=== PATIENT | female | born 1985 | race Caucasian/White ===

== ENCOUNTER 2024-04-16 19:00 | Emergency (ER) | payer OTHER ==
[2024-04-16 19:15] VITALS: TEMP 97.4
[2024-04-16] MEDS: KETOROLAC 15 MG/ML 1 ML VIAL IM STA (20:37)
--- NOTE | 2024-04-16 21:01 | XR ---
EXAMINATION TYPE: XR knee complete RT DATE OF EXAM: 04/16/2024 8:30 PM CLINICAL INDICATION:Female, 38 years old with history of pain, no injury; [facility] COMPARISON: None. TECHNIQUE: XR knee complete RT; examined in Frontal, lateral and oblique projections. FINDINGS: Nelida-Stieda avulsion fracture fragment adjacent to medial supracondylar area is age indeterminant. No evidence of any acute osseous pathology, soft tissue swelling, or joint effus ion is noted. IMPRESSION: 1. No acute osseous pathology. 2. Nelida-Stieda avulsion fracture fragment adjacent to medial supracondylar femur area is age indeterminant.
--- NOTE | 2024-04-16 21:46 | ED ---
Extremity Problem HPI - General Chief complaint: Extremity Problem,Nontraumatic Stated complaint: r leg pain/burning Time Seen by Provider: 04/16/24 20:01 Source: patient Mode of arrival: wheelchair Limitations: no limitations - History of Present Illness Initial comments: 38-year-old female presenting with chief complaint of right knee pain. Pain has been ongoing for about 1 week. She denies any injury or trauma. States that this is a burning pain. Pain gets significantly worse with weightbearing or range of motion. No numbness or tingling. Patient was previously on steroids for back pain, she states that this did nothing to alleviate the knee pain. No swelling or discoloration. - Related Data Previous Rx's Medication Instructions Recorded HYDROcodone/APAP 5-325MG [[place] 5] 1 each PO Q4-6H PRN #18 tab 04/17/24 Allergies Allergy/AdvReac Type Severity Reaction Status Date / Time shellfish derived [Shellfish] Allergy Anaphylaxis Verified 04/17/24 12:53 Review of Systems ROS Statement: Those systems with pertinent positive or pertinent negative responses have been documented in the HPI. ROS Other: All systems not noted in ROS Statement are negative. Past Medical History Past Medical History: No Reported History History of Any Multi-Drug Resistant Organisms: None Reported Past Surgical History: Adenoidectomy, Tonsillectomy Additional Past Surgical History / Comment(s): sinus, lap band /removal Past Psychological History: Depression Smoking Status: Vaper Past Alcohol Use History: Rare Past Drug Use History: Marijuana General Exam Limitations: no limitations General appearance: alert, in no apparent distress Head exam: Present: atraumatic, normocephalic Eye exam: Present: normal appearance, EOMI Neck exam: Present: normal inspection. Absent: meningismus Respiratory exam: Absent: respiratory distress Cardiovascular Exam: Present: regular rate Right Knee exam: Present: normal inspection, tenderness. Absent: full ROM, swelling, ecchymosis, erythema Neurovascular tendon exam: Present: no vascular compromise Neurological exam: Present: alert, oriented X3 Psychiatric exam: Present: normal affect, normal mood Skin exam: Present: warm, dry Course Vital Signs 04/16/24 04/16/24 19:11 22:08 Temperature 97.4 F L Pulse Rate 66 57 L Respiratory 18 16 Rate Blood Pressure 112/78 107/72 O2 Sat by Pulse 99 100 Oximetry Medical Decision Making - Medical Decision Making Was pt. sent in by a medical professional or institution (TRACEY Santoro, CUSTOMER CARE AGENT, urgent care, hospital, or assisted...) When possible be specific @ -No Did you speak to anyone other than the patient for history (EMS, parent, family, police, friend...)? What history was obtained from this source @ -No Did you review nursing and triage notes (agree or disagree)? Why? @ -I reviewed and agree with nursing and triage notes Were old charts reviewed (outside hosp., previous admission, EMS record, old EKG, old radiological studies, urgent care reports/EKG's, assisted records)? Report findings @ -No old charts were reviewed Differential Diagnosis (chest pain, altered mental status, abdominal pain women, abdominal pain men, vaginal bleeding, weakness, fever, dyspnea, syncope, headache, dizziness, GI bleed, back pain, seizure, CVA, palpatations, mental health, musculoskeletal)? @ -Differential Musculoskeletal Muscular strain, contusion, ligament sprain, fracture, arthritis, septic arthritis, bursitis, cellulitis, muscle spasm, nerve compression, DVT, arterial occlusion, herpes zoster, electrolyte abnormality, tumor.... This is not meant to be in all inclusive list EKG interpreted by me (3pts min.). @ -As above X-rays interpreted by me (1pt min.). @ -X-ray shows no acute osseous pathology. Nelida-Stieda avulsion fracture fragment. Adjacent to medial supracondylar femur area is age-indeterminate CT interpreted by me (1pt min.). @ -None done U/S interpreted by me (1pt. min.). @ -None done What testing was considered but not performed or refused? (CT, X-rays, U/S, labs)? Why? @ -None What meds were considered but not given or refused? Why? @ -None Did you discuss the management of the patient with other professionals (professionals i.e. TRACEY Santoro, CUSTOMER CARE AGENT, lab, RT, psych nurse, social services specialist, cottage attendant, teacher, attendance officer, case planner)? Give summary @ -No Was smoking cessation discussed for >3mins.? @ -No Was critical care preformed (if so, how long)? @ -No Were there social determinants of health that impacted care today? How? (Homelessness, low income, unemployed, alcoholism, drug addiction, transp ortation, low edu. Level, literacy, decrease access to med. care, shelter, rehab)? @ -No Was there de-escalation of care discussed even if they declined (Discuss DNR or withdrawal of care, Hospice)? DNR status @ -No What co-morbidities impacted this encounter? (DM, HTN, Smoking, COPD, CAD, Cancer, CVA, ARF, Chemo, Hep., AIDS, mental health diagnosis, sleep apnea, morbid obesity)? @ -None Was patient admitted / discharged? Hospital course, mention meds given and route, prescriptions, significant lab abnormalities, going to OR and other pertinent info. @ -38-year-old female presenting with chief complaint of right knee pain. No injury. She is neurovascularly intact. No evidence for infectious changes. Knee x-ray shows Nelida-Stieda fracture fragment. This is corresponding over the area of the patient's pain. She is placed in a knee immobilizer and provided with crutches. Instructed to follow-up with orthopedics. Discharged home. Follow-up with PCP. Report back to ER with any new or worsening symptoms. Discussed return parameters and answered all questions. Patient conveyed verbal understanding and agreed to the plan. I discussed this case in detail with my attending Dr. Fraser Undiagnosed new problem with uncertain prognosis? @ -No Drug Therapy requiring intensive monitoring for toxicity (Heparin, Nitro, Insulin, Cardizem)? @ -No Were any procedures done? @ -No Diagnosis/symptom? @ -Nelida-Stieda disease Acute, or Chronic, or Acute on Chronic? @ -Acute Uncomplicated (without systemic symptoms) or Complicated (systemic symptoms)? @ -Uncomplicated Side effects of treatment? @ -No Exacerbation, Progression, or Severe Exacerbation? @ -No Poses a threat to life or bodily function? How? (Chest pain, [place], [place], pneumonia, PE, COPD, DKA, ARF, appy, cholecystitis, CVA, Diverticulitis, Homicidal, Suicidal, threat to staff... and all critical care pts) @ -No Disposition Clinical Impression: Nelida-Stieda disease Disposition: HOME SELF-CARE Condition: Good Instructions (If sedation given, give patient instructions): Knee Pain (ED) Additional Instructions: Follow-up with orthopedics. Report back to ER with any new or worsening symptoms. Utilize your knee immobilizer and remain nonweightbearing on the affected leg. Rest, ice, elevate the knee. Is patient prescribed a controlled substance at d/c from ED?: No Referrals: Catie Dunne MD [Primary Care Provider] - 1-2 days Severiano Silva DO [Doctor of Osteopathic Medicine] - 1-2 days Time of Disposition: 21:46
[2024-04-16 22:20] VITALS: BP 107/72; PULSE 57; RESP 16
== END 2024-04-16 22:08 | disposition home or self-care (01) ==
LOC: EC 19:00
DX: M76.41 Tibial collateral bursitis [Pellegrini-Stieda], right leg (principal); F17.290 Nicotine dependence, other tobacco product, uncomplicated; Z90.89 Acquired absence of other organs; Z91.013 Allergy to seafood
CPT/HCPCS: 73562; 99283; 96372; L1830; J1885

== ENCOUNTER 2024-04-17 12:50 | Emergency (ER) | payer OTHER ==
[2024-04-17 12:53] VITALS: RESP 18; TEMP 97.6
--- NOTE | 2024-04-17 13:35 | ED ---
General Adult HPI - General Chief complaint: Extremity Problem,Nontraumatic Stated complaint: R Knee Pain Time Seen by Provider: 04/17/24 12:55 Source: patient, RN notes reviewed Mode of arrival: wheelchair Limitations: no limitations - History of Present Illness Initial comments: 38-year-old female presents to the emergency department for evaluation of right knee pain. Patient states that this has been going on for around 1 week. She presented to the emergency department yesterday for similar complaint. She states that the area of the pain seems to be worsening. She denies any redness, swelling, warmth to the area. She denies recent fever, chills. - Related Data Previous Rx's Medication Instructions Recorded HYDROcodone/APAP 5-325MG [[place] 5] 1 each PO Q4-6H PRN #18 tab 04/17/24 Allergies Allergy/AdvReac Type Severity Reaction Status Date / Time shellfish derived [Shellfish] Allergy Anaphylaxis Verified 04/17/24 12:53 Review of Systems ROS Statement: Those systems with pertinent positive or pertinent negative responses have been documented in the HPI. ROS Other: All systems not noted in ROS Statement are negative. Past Medical History Past Medical History: No Reported History History of Any Multi-Drug Resistant Organisms: None Reported Past Surgical History: Adenoidectomy, Tonsillectomy Additional Past Surgical History / Comment(s): sinus, lap band /removal Past Psychological History: Depression Smoking Status: Vaper Past Alcohol Use History: Rare Past Drug Use History: Marijuana General Exam Limitations: no limitations General appearance: alert, in no apparent distress Head exam: Present: atraumatic, normocephalic, normal inspection Eye exam: Present: normal appearance, PERRL, EOMI. Absent: scleral icterus, conjunctival injection, periorbital swelling ENT exam: Present: normal exam, mucous membranes moist Respiratory exam: Present: normal lung sounds bilaterally. Absent: respiratory distress, wheezes, rales, rhonchi, stridor Cardiovascular Exam: Present: regular rate, normal rhythm, normal heart sounds. Absent: systolic murmur, diastolic murmur, rubs, gallop, clicks Extremities exam: Present: full ROM, tenderness (Right medial knee), normal capillary refill. Absent: pedal edema, joint swelling, calf tenderness Neurological exam: Present: alert, oriented X3 Psychiatric exam: Present: normal affect, normal mood Skin exam: Present: warm, dry, intact, normal color. Absent: rash Course Vital Signs 04/17/24 04/17/24 12:51 15:14 Temperature 97.6 F Pulse Rate 66 60 Respiratory 18 18 Rate Blood Pressure 126/81 123/80 O2 Sat by Pulse 99 989 H Oximetry Medical Decision Making - Medical Decision Making Was pt. sent in by a medical professional or institution (, PA, PRODUCT SAFETY SPECIALIST, urgent care, hospital, or senior living...) When possible be specific @ -[No] Did you speak to anyone other than the patient for history (EMS, parent, family, police, friend...)? What history was obtained from this source @ -[No] Did you review nursing and triage notes (agree or disagree)? Why? @ -[I reviewed and agree with nursing and triage notes] Were old charts reviewed (outside hosp., previous admission, EMS record, old EKG, old radiological studies, urgent care reports/EKG's, senior living records)? Report findings @ -[X-ray from yesterday's visit was reviewed revealing Nelida status avulsion fracture fragment] Differential Diagnosis (chest pain, altered mental status, abdominal pain women, abdominal pain men, vaginal bleeding, weakness, fever, dyspnea, syncope, headache, dizziness, GI bleed, back pain, seizure, CVA, palpatations, mental health, musculoskeletal)? @ -[Differential Musculoskeletal Muscular strain, contusion, ligament sprain, fracture, arthritis, septic arthritis, bursitis, cellulitis, muscle spasm, nerve compression, DVT, arterial occlusion, herpes zoster, electrolyte abnormality, tumor.... This is not meant to be in all inclusive list] EKG interpreted by me (3pts min.). @ -[None] X-rays interpreted by me (1pt min.). @ -[None done] CT interpreted by me (1pt min.). @ -[None done] U/S interpreted by me (1pt. min.). @ -[Ultrasound of the right lower extremity was obtained today revealing no evidence of acute DVT] What testing was considered but not performed or refused? (CT, X-rays, U/S, labs)? Why? @ -[None] What meds were considered but not given or refused? Why? @ -[None] Did you discuss the management of the patient with other professionals (professionals i.e. , PA, PRODUCT SAFETY SPECIALIST, lab, RT, psych nurse, director of social services, rail technician, teacher, county records management officer, window caser)? Give summary @ -[No] Was smoking cessation discussed for >3mins.? @ -[No] Was critical care preformed (if so, how long)? @ -[No] Were there social determinants of health that impacted care today? How? (Homelessness, low income, unemployed, alcoholism, drug addiction, transportation, low edu. Level, literacy, decrease access to med. care, skilled nursing, rehab)? @ -[No] Was there de-escalation of care discussed even if they declined (Discuss DNR or withdrawal of care, Hospice)? DNR status @ -[No] What co-morbidities impacted this encounter? (DM, HTN, Smoking, COPD, CAD, Cancer, CVA, ARF, Chemo, Hep., AIDS, mental health diagnosis, sleep apnea, morbid obesity)? @ -[None] Was patient admitted / discharged? Hospital course, mention meds given and route, prescriptions, significant lab abnormalities, going to OR and other pe rtinent info. @ -[hospital course] Undiagnosed new problem with uncertain prognosis? @ -[No] Drug Therapy requiring intensive monitoring for toxicity (Heparin, Nitro, Insulin, Cardizem)? @ -[No] Were any procedures done? @ -[No] Diagnosis/symptom? @ -[default] Acute, or Chronic, or Acute on Chronic? @ -[default] Uncomplicated (without systemic symptoms) or Complicated (systemic symptoms)? @ -[default] Side effects of treatment? @ -[No] Exacerbation, Progression, or Severe Exacerbation? @ -[No] Poses a threat to life or bodily function? How? (Chest pain, [place], [place], pneumonia, PE, COPD, DKA, ARF, appy, cholecystitis, CVA, Diverticulitis, Homicidal, Suicidal, threat to staff... and all critical care pts) @ -[No] Disposition Clinical Impression: Nelida-Stieda disease Disposition: HOME SELF-CARE Condition: Stable Instructions (If sedation given, give patient instructions): Knee Pain (ED) Additional Instructions: Please follow up with orthopedics. Return to the emergency department for new or worsening symptoms. Prescriptions: HYDROcodone/APAP 5-325MG [[place] 5] 1 each PO Q4-6H PRN #18 tab PRN Reason: Pain Is patient prescribed a controlled substance at d/c from ED?: Yes When asked, does pt state using other controlled substances?: No If prescribed controlled substance>3 days was MAPS reviewed?: Prescribed <3 Days Referrals: Catie Dunne MD [Primary Care Provider] - 1-2 days
[2024-04-17] MEDS: HYDROmorphone 1 MG/ML 1 ML SYRINGE IM STA (13:38)
--- NOTE | 2024-04-17 14:28 | US ---
EXAMINATION TYPE: US venous doppler duplex LE RT DATE OF EXAM: 04/17/2024 1:35 PM COMPARISON: NONE CLINICAL INDICATION: Female, 38 years old with history of pain; pain SIDE PERFORMED: Right TECHNIQUE: The lower extremity deep venous system is examined utilizing real time linear array sonog lorenzo with graded compression, doppler sonography and color-flow sonography. VESSELS IMAGED: Common Femoral Vein Deep Femoral Vein Greater Saphenous Vein * Femoral Vein Popliteal Vein Small Saphenous Vein * Proximal Calf Veins (* superficial vessels) Right Leg: Negative for DVT IMPRESSION: Grayscale, color doppler, spectral doppler imaging performed of the deep veins of the lo wer extremities. There is normal flow, compressibility, vascular waveforms.
[2024-04-17 15:15] VITALS: BP 123/80; PULSE 60
== END 2024-04-17 16:05 | disposition home or self-care (01) ==
LOC: EC 12:50
DX: M76.41 Tibial collateral bursitis [Pellegrini-Stieda], right leg (principal); F17.290 Nicotine dependence, other tobacco product, uncomplicated; Z91.013 Allergy to seafood
CPT/HCPCS: 93971; 99284; 96372; J1170

== ENCOUNTER → 2025-03-08 | Outpatient (CLI) | payer OTHER ==
--- NOTE | 2025-03-08 11:32 | FL ---
EXAMINATION TYPE: FL UGI w small bowel DATE OF EXAM: 03/08/2025 COMPARISON: None CLINICAL INDICATION: Female, 39 years old with history of R19.4 CHANGE IN BOWEL HABIT; PHH, constipat ion and decreased appetite. Patient with history of lap band converted to gastric sleeve in 2009. TECHNIQUE: A single contrast upper GI study is performed with small bowel follow through. A total o f 1 minute 51 seconds of fluoroscopic time was utilized during procedure and 57 images obtained. Tot al dose area product (DAP) in uGy*m?, mGy*cm? (or similar): 100 mGycm2. FINDINGS: Hydrochlor[employer] Manufacturing Supervisor image of the abdomen shows no gross abnormality. There is scattered mild to moderate stool. Incidental transitional lumbosacral segment. The esophagus shows normal course and caliber. Allowing for single contrast technique, no evident thelma ling defects or discrete mucosal abnormality is seen. There is mild blunting of secondary stripping w aves resulting in some stagnation of residual contrast within the esophagus when the patient is prone /supine. No significant tertiary peristaltic waves are seen. No evidence of hiatal hernia or stricture noted. No significant gastroesophageal reflux was seen duri ng real-time performance of the study. Detailed mucosal assessment of the stomach is limited due to single contrast technique. The stomach i s mildly distended being status post sleeve gastrectomy. The duodenal bulb and sweep are unremarkable. Normal appearance to the folds within the duodenum. No obvious mass or ulcer disease is appreciated. The small bowel study shows normal transit to the colon in less than 60 minutes. There is normal muc osal fold pattern throughout the small bowel. There is no evidence of any stricture or filling defec t noted. The terminal ileum is unremarkable. IMPRESSION: 1. Some early esophageal dysmotility with mildly blunted secondary stripping waves. 2. The surgerized stomach shows mild excessive distention which may indicate clinical failure of the sleeve gastrectomy. Clinically correlate. 3. Exam limitations due to utilization of single contrast technique given previous bariatric surgery. Otherwise, no other specific abnormality on the upper GI and small bowel follow-through. [facility], , 03/08/2025 11:29 AM
== END | disposition home or self-care (01) ==
LOC: RADFLMAIN 08:19
PROVIDERS: ATTEND Family Medicine
DX: K22.4 Dyskinesia of esophagus (principal); K59.00 Constipation, unspecified; Z98.84 Bariatric surgery status
CPT/HCPCS: 74240; 74248

== ENCOUNTER 2025-03-24 18:25 | Emergency (ER) | payer OTHER ==
--- NOTE | 2025-03-24 18:44 | ED ---
Abdominal Pain HPI - General Source: patient, RN notes reviewed Mode of arrival: ambulatory Limitations: no limitations - History of Present Illness MD Complaint: abdominal pain <Reshma Nolan - Last Filed: 03/24/25 18:43> <Cee Stein - Last Filed: 03/24/25 23:47> - General Chief Complaint: Abdominal Pain Stated Complaint: Abd pressure/no bowel movement 3wks Time Seen by Provider: 03/24/25 18:35 - History of Present Illness Initial Comments: Quick Note: This is a 39-year-old female who presents to the emergency department for problems with constipation. States that for the last 3 weeks she has not had a normal bowel movement. When she tries to have a bowel movement, states that only diarrhea or mucus comes out. She did try MiraLAX at one point, but states that it seemed like it only made things worse. Denies any significant abdominal pain associated with this. Denies any nausea/vomiting or fever/chills. (Reshma Nolan) 39-year-old female presenting to the emergency department for chief complaint of constipation x 1 month. States for the last month she has not been having normal bowel movements. States she has the urge to defecate but only has small bowel movements. She does reports a couple instances of small amounts of diarrhea. Denies fevers, nausea, vomiting, abdominal pain, rectal pain. She does have a follow-up next week for a colonoscopy. She is tolerating orals well. (Cee Stein) - Related Data Home Medications Medication Instructions Recorded Confirmed Methylphenidate HCl [Concerta] 1 tab PO DAILY 12/14/24 12/28/24 Allergies Allergy/AdvReac Type Severity Reaction Status Date / Time shellfish derived [Shellfish] Allergy Anaphylaxis Verified 12/28/24 09:14 Review of Systems ROS Other: All systems not noted in ROS Statement are negative. <Reshma Nolan - Last Filed: 03/24/25 18:43> ROS Other: All systems not noted in ROS Statement are negative. <Cee Stein - Last Filed: 03/24/25 23:47> ROS Statement: Those systems with pertinent positive or pertinent negative responses have been documented in the HPI. Past Medical History Past Medical History: Blood Disorder Additional Past Medical History / Comment(s): IRON DEFICIENCY ANEMIA. History of Any Multi-Drug Resistant Organisms: None Reported Past Surgical History: Adenoidectomy, Tonsillectomy Additional Past Surgical History / Comment(s): sinus, lap band /removal Past Psychological History: Depression Smoking Status: Vaper Past Alcohol Use History: Rare Past Drug Use History: Marijuana <Reshma Nolan - Last Filed: 03/24/25 18:43> General Exam Limitations: no limitations <Reshma Nolan - Last Filed: 03/24/25 18:43> General appearance: alert, in no apparent distress Head exam: Present: atraumatic, normocephalic, normal inspection Eye exam: Present: normal appearance, PERRL, EOMI. Absent: scleral icterus, conjunctival injection, periorbital swelling GI/Abdominal exam: Present: soft, normal bowel sounds. Absent: distended, tenderness, guarding, rebound, rigid Neurological exam: Present: alert, oriented X3 Psychiatric exam: Present: normal affect, normal mood Skin exam: Present: warm, dry, intact, normal color. Absent: rash <Cee Stein - Last Filed: 03/24/25 23:47> - General Exam Comments Initial Comments: Visual Physical Exam Vital signs reviewed General: Well-appearing, nontoxic, no acute distress. Head: Normocephalic, atraumatic Eyes: PERRLA, EOMI ENT: Airway patent Chest: Nonlabored breathing Skin: No visual rash, normal skin tone Neuro: Alert and oriented 3 Musculoskeletal: No gross abnormalities (Reshma Nolan) Course Vital Signs 03/24/25 18:38 Temperature 97.8 F Pulse Rate 71 Respiratory 18 Rate Blood Pressure 124/85 O2 Sat by Pulse 98 Oximetry Medical Decision Making <Reshma Nolan - Last Filed: 03/24/25 18:43> - Lab Data Result diagrams: 03/24/25 19:34 03/24/25 19:34 <Cee Stein - Last Filed: 03/24/25 23:47> - Medical Decision Making I performed the QuickNote portion of this chart. Signed Reshma Nolan PA-C. (Reshma Nolan) Was pt. sent in by a medical professional or institution ([facility]oro, STATION DETECTIVE, urgent care, hospital, or fpc...) When possible be specific @ -No Did you speak to anyone other than the patient for history (EMS, parent, family, police, friend...)? What history was obtained from this source @ -No Did you review nursing and triage notes (agree or disagree)? Why? @ -I reviewed and agree with nursing and triage notes Were old charts reviewed (outside hosp., previous admission, EMS record, old EKG, old radiological studies, urgent care reports/EKG's, fpc records)? Report findings @ -No old charts were reviewed Differential Diagnosis (chest pain, altered mental status, abdominal pain women, abdominal pain men, vaginal bleeding, weakness, fever, dyspnea, syncope, headache, dizziness, GI bleed, back pain, seizure, CVA, palpatations, mental health, musculoskeletal)? @ -Differential Abdominal Pain Women: Appendicitis, Cholecystitis, diverticulosis, ischemic bowel, pancreatitis, hepatitis, UTI, gastroenteritis, AAA, incarcerated hernia, bowel obstruction, constipation, inflammatory bowel, hepatitis, peptic ulcer disease, splenic infarction, perforated viscus, vulvitis, ovarian torsion, PID, kidney stone, placenta abruption, this is not meant to be an all-inclusive list EKG interpreted by me (3pts min.). @ -None X-rays interpreted by me (1pt min.). @ -KUB unremarkable bowel gas pattern CT interpreted by me (1pt min.). @ -None done U/S interpreted by me (1pt. min.). @ -None done What testing was considered but not performed or refused? (CT, X-rays, U/S, labs)? Why? @ -None What meds were considered but not given or refused? Why? @ -None Did you discuss the management of the patient with other professionals (professionals i.e. , PA, STATION DETECTIVE, lab, RT, psych nurse, social media strategist, engineering design supervisor, teacher, engineering officer, complex case manager)? Give summary @ -No Was smoking cessation discussed for >3mins.? @ -No Was critical care preformed (if so, how long)? @ -No Were there social determinants of health that impacted care today? How? (Homelessness, low income, unemployed, alcoholism, drug addiction, tra nsportation, low edu. Level, literacy, decrease access to med. care, long term, rehab)? @ -No Was there de-escalation of care discussed even if they declined (Discuss DNR or withdrawal of care, Hospice)? DNR status @ -No What co-morbidities impacted this encounter? (DM, HTN, Smoking, COPD, CAD, Cancer, CVA, ARF, Chemo, Hep., AIDS, mental health diagnosis, sleep apnea, morbid obesity)? @ -None Was patient admitted / discharged? Hospital course, mention meds given and route, prescriptions, significant lab abnormalities, going to OR and other pertinent info. @ -Discharge. 39-year-old female presenting for constipation x 1 month. Denies fevers or abdominal pain. Patient is well-appearing. Abdomen soft and nonsurgical. Lab work unremarkable. KUB unremarkable. Patient was given magnesium citrate for constipation. Advised to follow-up for colonoscopy next week. Appropriate return precautions and supportive care discussed. Case was discussed with my ED attending Dr. Fraser. Undiagnosed new problem with uncertain prognosis? @ -No Drug Therapy requiring intensive monitoring for toxicity (Heparin, Nitro, Insulin, Cardizem)? @ -No Were any procedures done? @ -No Diagnosis/symptom? @ -Constipation Acute, or Chronic, or Acute on Chronic? @ -Acute Uncomplicated (without systemic symptoms) or Complicated (systemic symptoms)? @ -Uncomplicated Side effects of treatment? @ -No Exacerbation, Progression, or Severe Exacerbation? @ -No Poses a threat to life or bodily function? How? (Chest pain, [place], [place], pneumonia, PE, COPD, DKA, ARF, appy, cholecystitis, CVA, Diverticulitis, Homicidal, Klarissa cidal, threat to staff... and all critical care pts) @ -No (Cee Stein) - Lab Data Lab Results 03/24/25 03/24/25 03/24/25 Range/Units 19:34 19:34 19:34 WBC 7.11 (4.50-10.00) 10*3/uL RBC 4.82 (4.10-5.20) 10*6/uL Hgb 12.5 (12.0-15.0) g/dL Hct 39.7 (37.2-46.3) % MCV 82.4 (80.0-97.0) fL MCH 25.9 L (27.0-32.0) pg MCHC 31.5 L (32.0-37.0) g/dL Plt Count 294 (140-440) 10*3/uL MPV 10.3 (9.5-12.2) fL Immature Gran % (Auto) 0.1 % Neutrophils % 50.0 % Lymphocytes % 38.4 % Monocytes % 9.0 % Eosinophils % 1.5 % Basophils % 1.0 % Immature Gran # 0.01 (0.00-0.04) 10*3/uL Neutrophils # 3.55 (1.80-7.70) 10*3/uL Lymphocytes # 2.73 (0.90-5.00) 10*3/uL Monocytes # 0.64 (0.20-1.00) 10*3/uL Eosinophils # 0.11 (0.04-0.35) 10*3/uL Basophils # 0.07 (0.00-0.10) 10*3/uL Sodium 140 (137-145) mmol/L Potassium 4.7 (3.5-5.1) mmol/L Chloride 107 (98-107) mmol/L Carbon Dioxide 22 (22-30) mmol/L Anion Gap 11 mmol/L BUN 9 (7-17) mg/dL Creatinine 0.56 (0.52-1.04) mg/dL Est GFR (CKD-EPI)AfAm >90 (>60 ml/min/1.73 sqM) Est GFR (CKD-EPI)NonAf >90 (>60 ml/min/1.73 sqM) Glucose 87 (74-99) mg/dL Plasma Lactic Acid Flaco 1.0 (0.7-2.0) mmol/L Calcium 9.5 (8.4-10.2) mg/dL Magnesium 2.0 (1.6-2.3) mg/dL Total Bilirubin 0.7 (0.2-1.3) mg/dL AST 31 (14-36) U/L ALT 16 (4-34) U/L Alkaline Phosphatase 62 (38-126) U/L Total Protein 7.4 (6.3-8.2) g/dL Albumin 4.6 (3.5-5.0) g/dL Amylase 51 (30-110) U/L Lipase 109 (23-300) U/L HCG, Qual Not Detected Disposition <Reshma Nolan - Last Filed: 03/24/25 18:43> Is patient prescribed a controlled substance at d/c from ED?: No Time of Disposition: 23:44 <SteinCee - Last Filed: 03/24/25 23:47> Clinical Impression: Constipation Disposition: HOME SELF-CARE Condition: Stable Instructions (If sedation given, give patient instructions): Constipation (ED) Additional Instructions: Take half the bottle of magnesium citrate when you get home. If no bowel movement by tomorrow morning, take the rest of the bottle. Follow-up for colonoscopy next week. Please return to the Emergency Department if symptoms worsen or any other concerns. Referrals: Catie Dunne MD [Primary Care Provider] - 1-2 days
--- NOTE | 2025-03-24 19:45 | XR ---
EXAMINATION TYPE: XR KUB DATE OF EXAM: 03/24/2025 COMPARISON: Upper GI with small bowel follow-through 03/08/2025 HISTORY: Abdominal pain TECHNIQUE: Single upright KUB image of the abdomen is obtained FINDINGS: Small bowel demonstrates no evidence for dilatation or air fluid levels. Gas and fecal material is seen in non-distended colon. Few foci of residual contrast identified withi n the bowel from prior upper GI and small bowel follow-through. No convincing evidence for pneumoperitoneum. No unusual calcifications. The lung bases are clear. The osseous structures are intact. IMPRESSION: Overall nonobstructive bowel gas pattern. [facility], , 03/24/2025 7:43 PM
[2025-03-24 19:50] LABS: Basophils # (A) 0.07 10*3/uL (0.00-0.10); Basophils % (A) 1.0 %; Eosinophils # (A) 0.11 10*3/uL (0.04-0.35); Eosinophils % (A) 1.5 %; HCT 39.7 % (37.2-46.3); HGB 12.5 g/dL (12.0-15.0); Lymphocytes # (A) 2.73 10*3/uL (0.90-5.00); Lymphocytes % (A) 38.4 %; MCH 25.9 pg (27.0-32.0); MCHC 31.5 g/dL (32.0-37.0); MCV 82.4 fL (80.0-97.0); Monocytes # (A) 0.64 10*3/uL (0.20-1.00); Monocytes % (A) 9.0 %; Neutrophils # (A) 3.55 10*3/uL (1.80-7.70); Neutrophils % (A) 50.0 %; Platelet Count 294 10*3/uL (140-440); RBC 4.82 10*6/uL (4.10-5.20); RDW 15.9 % (11.5-14.5); WBC 7.11 10*3/uL (4.50-10.00)
[2025-03-24 20:06] LABS: ALT 16 U/L (4-34); AST 31 U/L (14-36); African American GFR (CKD) >90 (>60 ml/min/1.73 sqM); Albumin 4.6 g/dL (3.5-5.0); Alkaline Phosphatase 62 U/L (38-126); Amylase 51 U/L (30-110); Anion Gap 11 mmol/L; Blood Urea Nitrogen 9 mg/dL (7-17); Calcium 9.5 mg/dL (8.4-10.2); Carbon Dioxide 22 mmol/L (22-30); Chloride 107 mmol/L (98-107); Glucose 87 mg/dL (74-99); HCG,Qualitative Serum Not Detected; Lipase 109 U/L (23-300); Magnesium 2.0 mg/dL (1.6-2.3); Non-African American GFR(CKD) >90 (>60 ml/min/1.73 sqM); Sodium 140 mmol/L (137-145); Total Protein 7.4 g/dL (6.3-8.2)
[2025-03-24 20:21] LABS: Potassium 4.7 mmol/L (3.5-5.1)
[2025-03-25] MEDS: MAGNESIUM CITRATE 296 ML BOTTLE PO ONE (00:01)
[2025-03-25 00:03] VITALS: BP 120/83
[2025-03-25 00:04] VITALS: PULSE 59; RESP 16; TEMP 98.1
== END 2025-03-25 00:04 | disposition home or self-care (01) ==
LOC: EC 18:25
DX: K59.00 Constipation, unspecified (principal); F17.290 Nicotine dependence, other tobacco product, uncomplicated; Z91.013 Allergy to seafood
CPT/HCPCS: 36415; 74018; 80053; 82150; 83605; 83690; 83735; 84703; 85025; 99284